=== PATIENT | male | born 1975 ===

== ENCOUNTER 2020-09-26 14:22 | Outpatient (REF) | payer OTHER, SELFPAY ==
[2020-09-26 15:10] LABS: Influenza A PCR NEGATIVE (Negative); Influenza B PCR NEGATIVE (Negative); Resp Syncy Virus RNA Qual PCR NEGATIVE (Negative); SARS COV2 PCR INHOUSE POSITIVE (Negative)
== END 2020-09-26 14:23 | disposition home or self-care (01) ==
LOC: HO.LNP 14:22
PROVIDERS: Visit Provider Internal Medicine
DX: Z20.822 Contact with and (suspected) exposure to COVID-19 (principal); R51.9 Headache, unspecified; R50.9 Fever, unspecified
CPT/HCPCS: 0241U

== ENCOUNTER → 2020-12-28 13:53 | Outpatient (BNVA) | payer SELFPAY | PROVIDERS: PCP Internal Medicine; Visit Provider Internal Medicine | DX: Z02.79 Encounter for issue of other medical certificate (principal) ==

== ENCOUNTER 2021-08-01 06:31 | Outpatient (REF) | payer OTHER, SELFPAY ==
[2021-08-01 07:18] LABS: Hematocrit 37.2 % (42.0-52.0); Hemoglobin 12.5 g/dl (14.0-18.0); Mean Corpuscular HGB Conc 33.6 g/dl (31.0-36.0); Mean Corpuscular Hemoglobin 29.1 pg (27.0-33.0); Mean Corpuscular Volume 86.7 fL (80.0-98.0); Mean Platelet Volume 10.1 fL (9.4-12.4); PLT CLUMP 1; Red Blood Count 4.29 X10*6/uL (4.60-5.80)
[2021-08-01 07:38] LABS: White Blood Count 4.1 X10*3/uL (4.8-10.8)
[2021-08-01 07:39] LABS: Platelet Count 235 X10*3/uL (160-400)
[2021-08-01 07:42] LABS: Alanine Aminotransferase 19 U/L (0-40); Albumin Level 4.5 g/dL (3.5-5.0); Alkaline Phosphatase 65 U/L (39-117); Anion Gap 13 (12-20); Aspartate Amino Transferase 17 U/L (5-37); Bilirubin Total 0.5 mg/dL (0.0-1.0); Blood Urea Nitrogen 19 mg/dL (9-16); Calcium 9.6 mg/dL (8.4-10.2); Carbon Dioxide 24 mmol/L (22-29); Chloride 107 mmol/L (96-108); Cholesterol 246 mg/dL; Estimated Glomerular Filt Rate > 60; Glucose Fasting 109 mg/dL (60-99); HDL Cholesterol 34 mg/dL; LDL Cholesterol Calculated 180 mg/dl; Potassium 4.4 mmol/L (3.3-5.1); Sodium 140 mmol/L (135-145); Total Protein 7.5 g/dL (6.5-8.0); Triglycerides 160 mg/dL
[2021-08-01 07:48] LABS: Eosinophils Absolute Manual 0.2 X10*3/uL (0.0-0.4); Eosinophils Percent Manual 6 % (0-4); Lymphocytes Absolute Manual 2.5 X10*3/uL (1.2-4.9); Lymphocytes Percent Manual 62 % (20-40); Monocytes Absolute Manual 0.2 X10*3/uL (0.1-1.2); Monocytes Percent Manual 4 % (2-11); Neutrophils Percent Manual 28 % (45-73)
[2021-08-01 07:49] LABS: Platelet Estimate NORMAL (NORMAL); Platelet Morphology Comment NORMAL; RBC Morphology NORMAL
[2021-08-01 08:03] LABS: Prostate Specific Antigen Scr 0.48 ng/mL (<0.05-4.0)
[2021-08-01 09:29] LABS: Band Neutrophils Percent 0 % (3-5); Neutrophils Absolute Manual 1.1 X10*3/uL (2.0-8.3)
== END 2021-08-01 06:32 | disposition home or self-care (01) ==
LOC: HO.LAB 06:31
PROVIDERS: PCP Internal Medicine; Visit Provider Internal Medicine
DX: Z00.00 Encounter for general adult medical examination without abnormal findings (principal); Z12.5 Encounter for screening for malignant neoplasm of prostate; R35.1 Nocturia
CPT/HCPCS: 36415; 80053; 80061; 84153; 85007; 85025; 85027

== ENCOUNTER 2021-11-01 16:15 | Outpatient (REF) | payer OTHER, SELFPAY ==
--- NOTE | ~2021-11-01 | XR_ITS ---
EXAMINATION: XR WRIST, RIGHT CLINICAL INFORMATION: Right wrist pain COMPARISON: None TECHNIQUE: Right wrist is imaged in 4 views. FINDINGS: There is no fracture or dislocation. The ulnar variance is neutral. There is no joint narrowing or erosive change or chondrocalcinosis. Normal bony mineralization. No periostitis. XR/XR wrist RT min 3V IMPRESSION: Unremarkable right wrist.
[2021-11-01 16:28] LABS: MANUAL DIFF FLAG NO
[2021-11-01 17:35] LABS: Basophils Percent Auto 0.9 % (0-2); Eosinophils Absolute Auto 0.2 X10*3/uL (0.0-0.4); Eosinophils Percent Auto 5.2 % (0-4); Hematocrit 38.9 % (42.0-52.0); Hemoglobin 13.1 g/dl (14.0-18.0); Imm Gran Abs Auto 0.01 X10*3/uL (0.00-0.03); Imm Gran Pct Auto 0.2 % (0.0-0.4); Lymphocytes Absolute Auto 2.3 X10*3/uL (1.2-4.9); Lymphocytes Percent Auto 54.7 % (20-40); Mean Corpuscular HGB Conc 33.7 g/dl (31.0-36.0); Mean Corpuscular Hemoglobin 29.4 pg (27.0-33.0); Mean Corpuscular Volume 87.4 fL (80.0-98.0); Monocytes Absolute Auto 0.3 X10*3/uL (0.1-1.2); Monocytes Percent Auto 5.9 % (2-11); Neutrophils Absolute Auto 1.4 x10*3/uL (2.0-8.3); Neutrophils Percent Auto 33.1 % (45-73); Platelet Count 272 X10*3/uL (160-400); Red Blood Count 4.45 X10*6/uL (4.60-5.80); Red Cell Distribution Width 11.7 % (11.0-16.0); White Blood Count 4.3 X10*3/uL (4.8-10.8)
[2021-11-01 17:52] LABS: C Reactive Protein 0.18 mg/dL (< or = 0.50); Iron 85 mcg/dL (45-160); Percent Iron Saturation 24 % (15-50); Total Iron Binding Capacity 351 mcg/dL (228-428); Unsaturated Iron Binding 266 ug/dL
== END 2021-11-01 16:16 | disposition home or self-care (01) ==
LOC: HO.LAB 16:15
PROVIDERS: PCP Internal Medicine; Visit Provider Internal Medicine
DX: M25.531 Pain in right wrist (principal); D64.9 Anemia, unspecified; E78.00 Pure hypercholesterolemia, unspecified
CPT/HCPCS: 36415; 73110; 83540; 85025; 86140

== ENCOUNTER 2021-11-28 09:23 | Outpatient (REF) | payer OTHER, SELFPAY ==
[2021-11-28 11:05] LABS: Cholesterol 239 mg/dL; HDL Cholesterol 33 mg/dL; LDL Cholesterol Calculated 175 mg/dl; Triglycerides 158 mg/dL
== END 2021-11-28 09:24 | disposition home or self-care (01) ==
LOC: HO.LAB 09:23
PROVIDERS: PCP Internal Medicine; Visit Provider Internal Medicine
DX: E78.00 Pure hypercholesterolemia, unspecified (principal)
CPT/HCPCS: 36415; 80061

== ENCOUNTER 2022-01-04 06:12 | Day surgery (SDC) | payer OTHER, SELFPAY ==
[2021-12-28 14:00] VITALS: BMI 26.9
--- NOTE | 2022-01-03 09:55 | HO.ANESPROP2 ---
Documented by User: Ilene Aj NP 01/03/22 09:56 HPI - Anesthesia Eval Consult details Narrative: 46yo M for Colonoscopy [facility] Past Medical History Medical History Elevated cholesterol History of COVID-19 HTN (hypertension) Surgical History Surgical History No pertinent past surgical history Social History Social History Patient Tobacco Use Status: Former Tobacco user Quit Date: years ago Use of substances other than those prescribed or required for medical reasons: No Are you DNR?: No Advance Directives: No Advance Directives Information Provided: Yes Meds Allergies Allergy/AdvReac Type Severity Reaction Status Date / Time No Known Allergies Allergy Verified 12/28/21 13:59 Home Medications Medication Instructions Recorded Confirmed Last Taken Type No Known Home Meds 12/28/21 12/28/21 Unknown History Exam Exam Date and Time: January 03, 2022 0955 Height,Weight and Vital Signs: Height 5 ft 10 in Weight 85.275 kg Pertinent Lab Results Pertinent Lab Results: Laboratory Tests 08/01/21 11/01/21 06:49 16:27 WBC 4.3 L Hgb 13.1 L Hct 38.9 L Plt Count 272 Sodium 140 Potassium 4.4 Chloride 107 Carbon Dioxide 24 BUN 19 H Creatinine 0.96 Assessment and Plan Assessment Anesthesia Assessment: Chart Reviewed Documented by User: Kathleen Boyce MD 01/04/22 07:25 [facility] Past Medical History Medical History Elevated cholesterol History of COVID-19 HTN (hypertension) Surgical History Surgical History No pertinent past surgical history History of Problems with Anesthesia: No Social History Social History Patient Tobacco Use Status: Former Tobacco user Quit Date: years ago Use of substances other than those prescribed or required for medical reasons: No Are you DNR?: No Advance Directives: No Advance Directives Information Provided: Yes Meds Allergies Allergy/AdvReac Type Severity Reaction Status Date / Time No Known Allergies Allergy Verified 12/28/21 13:59 Home Medications Medication Instructions Recorded Confirmed Last Taken Type No Known Home Meds 12/28/21 12/28/21 Unknown History Exam Airway Mallampati Class: III TM Dist: >3cm Neck ROM: Full Loose/Missing/Broken Teeth: No Heart: RRR Lungs: CTA Assessment and Plan Assessment Anesthesia Assessment: Anesthesia Plan Discussed Final Anesthetic Review History of Problems with Anesthesia: No NPO: Yes ASA Class: II Final Preanesthetic Review: Meds/Allgs Chart Reviewed, Consent Obtained/Reviewed and Anes Risks/Benef Reviewed Patient Risk: Low Procedure Risk: Low Anesthetic Plan Anesthetic Plan: MAC: Disposition: Standard PACU
[2022-01-04 06:23] VITALS: BMI 26.1
[2022-01-04 06:39] VITALS: BP 111/70; PULSE 58; RESP 18; TEMP 36.7; O2SAT 98
--- NOTE | 2022-01-04 07:18 | P.HPSUR_ITS ---
Pre-Procedural Eval Section A Date of Service: 01/04/22 Section B Chief Complaint: screening Details of Present Illness: see h an p no changes Relevant Family History (Specify if Yes): No Relevant Social History: None Present Medications: None Medical History: No relevant PMH History of Previous Operations: No relevant previous surgery Allergies: Allergies Allergy/AdvReac Type Severity Reaction Status Date / Time No Known Allergies Allergy Verified 12/28/21 13:59 Review of Systems Sugical H&P ROS: Negative: Constitution, Cardiovascular, Respiratory, Neurological, Psychiatric, Hem-Onc, Allergic/Immunologic, Gastrointestinal, Gen itourinary, Musculoskeletal, Integumentary, Endocrine and Eyes/Ears/Nose/Throat Exam Surgical H&P Exam: Normal: HEENT, Normal: Heart, Normal: Lungs, Normal: Extremities, Normal: Abdomen, Normal: Skin and Normal: Neurological Plan Diagnosis/Plan: Unchanged I have reviewed the history and physical and performed a pertinent physical examination on my patient. No changes have occurred unless specified.
[2022-01-04] MEDS: Lactated Ringers 1,000 ML 100 ML IVCONT (07:45)
[2022-01-04 07:50] VITALS: BP 86/42; PULSE 72; RESP 18; TEMP 37.2; O2SAT 98
--- NOTE | 2022-01-04 07:51 | PM.OP ---
Brief Operative Note Date of Service: 01/04/22 Pre-op diagnosis: screening Post-op diagnosis: same Procedure: colonoscopy Surgeon: Kun Mchugh Anesthesia: MAC Was an Senior Software Test Engineer used for this Procedure?: No Estimated blood loss (mL): 0 Pathology: other Condition: stable Disposition: PACU
[2022-01-04 08:05] VITALS: BP 108/70; PULSE 65; RESP 16; O2SAT 98
[2022-01-04 08:20] VITALS: BP 113/71; PULSE 54; RESP 16; TEMP 36.8; O2SAT 99
--- NOTE | 2022-01-04 19:02 | OP_ITS ---
SURGEON: Kun Mchugh MD INDICATIONS: Colon cancer screening. PREOPERATIVE DIAGNOSIS: POSTOPERATIVE DIAGNOSIS: PROCEDURE PERFORMED: ESTIMATED BLOOD LOSS: COMPLICATIONS: ANESTHESIA: ASSISTANTS: SPECIMENS: PROCEDURE: Colonoscopy to the terminal ileum with biopsy. MEDICATIONS: Monitored anesthesia care. DESCRIPTION OF PROCEDURE: A history and physical performed. The risks and benefits of the procedure were explained to the patient. Informed consent was obtained. The patient was placed in the left lateral decubitus position. A digital rectal exam was performed and was found to be normal. The Olympus pediatric video colonoscope was introduced into the rectum and advanced to the cecum without difficulty. The cecum was identified by transillumination, palpation, and identification of ileocecal valve. Examination was performed. The scope was removed. He tolerated the procedure well and was taken to recovery area in stable condition. FINDINGS: The terminal ileum was normal. Visualized colonic mucosa was normal. The quality of the prep was good. A single polyp measuring less than 5 mm was identified in the cecum across from the ileocecal valve. This was removed with biopsy forceps. No other polyps were identified. Retroflexed examination showed small internal hemorrhoids. IMPRESSION: Colon polyp. RECOMMENDATIONS: Follow up the biopsy results. MD RADHA Woods/KRYSTIAN / [id number]
== END 2022-01-04 08:55 | disposition home or self-care (01) ==
PROVIDERS: PCP Internal Medicine; Visit Provider Internal Medicine Gastroenterology
PROC: 0DJD8ZZ Inspection of Lower Intestinal Tract, Via Natural or Artificial Opening Endoscopic (ICD-10-PCS; CPT 45378; principal; 2022-01-04 07:30)
DX: Z12.11 Encounter for screening for malignant neoplasm of colon (principal); D12.0 Benign neoplasm of cecum; K64.8 Other hemorrhoids; E78.00 Pure hypercholesterolemia, unspecified; I10 Essential (primary) hypertension; Z86.16 Personal history of COVID-19; Z87.891 Personal history of nicotine dependence
CPT/HCPCS: 45380; 88305

== ENCOUNTER → 2022-12-27 11:03 | Outpatient (BNVA) | payer SELFPAY | PROVIDERS: PCP Internal Medicine; Visit Provider Physician Assistant | DX: Z02.79 Encounter for issue of other medical certificate (principal) ==

== ENCOUNTER 2023-02-22 19:18 | Emergency (ER) | payer OTHER, SELFPAY ==
[2023-02-22 19:20] VITALS: BP 138/85; PULSE 73; RESP 18; TEMP 36.4; O2SAT 98; BMI 26.9
--- NOTE | 2023-02-22 19:21 | ED.GENADULT ---
HPI - General Adult General Chief complaint: Eye Problems Stated complaint: FB in R eye Time Seen by Provider: 02/22/23 21:00 Source: patient Mode of arrival: ambulatory Limitations: no limitations History of Present Illness HPI narrative: 47-year-old male with no major medical problems presents with right eye pain. Patient had a metal fragment hit his right eye yesterday. He had minimal to no pain until today. This pain is moderate to severe. Worse with light and blinking. The pain does not radiate. Denies any vision changes. There are no relieving features. He has never had anything like this before. Does not wear contacts but does wear reading glasses. Patient's tetanus vaccination is not up-to-date. Related Data Previous Rx's Medication Instructions Recorded erythromycin 5 mg/gram (0.5 %) eye 1 appl ophthalmic-Right DAILY #3.5 02/22/23 ointment grams polymyxin B sulfate 10,000 1 drp ophthalmic-Right Q3H 7 days 02/22/23 unit-trimethoprim 1 mg/mL eye #10 mL drops (Polytrim) Allergies Allergy/AdvReac Type Severity Reaction Status Date / Time No Known Allergies Allergy Verified 12/28/21 13:59 Review of Systems Review of Systems: CONSTITUTIONAL: Denies weight loss, fever and chills. HEENT: Denies changes in vision and hearing. RESPIRATORY: Denies SOB and cough. CV: Denies palpitations no CP. GI: Denies abdominal pain, nausea, vomiting and diarrhea. : Denies dysuria and urinary frequency. MSK: Denies myalgia and joint pain. SKIN: Denies rash and pruritus. NEUROLOGICAL: Denies headache and syncope. PSYCHIATRIC: Denies recent changes in mood. Denies anxiety and depression. All other ROS are negative unless in HPI PMF Past Medical History Medical History Elevated cholesterol History of COVID-19 HTN (hypertension) Surgical History No pertinent past surgical history Social History Social History Patient Tobacco Use Status: Former Tobacco user Quit Date: years ago Advance Directives: No Advance Directives Information Provided: No Physical Exam ED Vital Signs: Vital Signs - 24 hr 02/22/23 19:20 Temperature 97.6 F Pulse Rate 73 Respiratory Rate 18 Blood Pressure 138/85 Pulse Oximetry 98 Oxygen Delivery Method Room Air BMI result Body Mass Index 26.9 GEN: Well developed, no acute distress, alert, oriented HEENT: Normocephalic, atraumatic, normal external ears, nose appears normal Eyes: At eye with conjunctival injection, fluorescein exam did not reveal any significant corneal abrasions. No foreign bodies visualized. No foreign bodies with eversion eyelids. Otherwise, pupils are equal round reactive to light, extraocular muscles were intact, there was tearing but no purulent discharge Neck: Supple, no lymphadenopathy Respiratory: Talks in complete sentences, no respiratory distress Extremities: No clubbing cyanosis or edema Neurologic: No focal neurologic deficits, cranial nerves 2-12 intact, gait normal Skin: No rash Course Course Course Narrative: RME performed by Malou Varela PA-C. Patient is a 47 year old assigned male at presenting to the emergency department with a possible metal foreign body in his right eye. Patient placed back in the waiting room pending room availability. Reevaluation(s) Reevaluation #1: Exam did not reveal any foreign bodies. Although I did not see any significant corneal abrasions, will go ahead and treat the patient with topical antibiotics refer to ophthalmology. Patient could return for any worsening concerning symptoms. Time: 22:31 Medications Administered Discontinued Medications Generic Name Dose Route Start Last Admin Trade Name Freq PRN Reason Stop Dose Admin Diphtheria/Tetanus/Acell Pertussis 0.5 ml 02/22/23 21:12 02/22/23 21:40 Diphth,Pertus(Acell),Tet Adult 0.5 Ml Syringe IM 02/22/23 21:13 0.5 ml .ONCE ONE Administration Fluorescein Sodium 1 strip 02/22/23 21:13 02/22/23 21:30 Fluorescein Sodium Strip EYE-BOTH 02/22/23 21:14 1 strip ONCE ONE Administration Medical Decision Making Medical Decision Making MDM Narrative: 47-year-old male presents with acute right eye pain following possible metal fragment to the right eye. He does have some photophobia. There is tearing but no other purulent discharge. Examination did not reveal any obvious corneal abrasions or foreign bodies including under either eyelid. Patient's tetanus vaccination has been updated. Will start the patient on topical antibiotics and referred to Ophthalmology to be seen at his earliest convenience. Differential Diagnosis Differential Diagnoses: The differential diagnosis associated with the presentation includes (Corneal abrasion, conjunctivitis, eye irritation) Prescription Management I considered prescription management with: Pain Medication and Antibiotic Discharge Plan Discharge Clinical Impression: Corneal abrasion Patient Disposition: Home, Self-Care Instructions: Diphtheria/Acellular Pertussis/Tetanus Booster Vaccine (By injection), Corneal Abrasion (ED) Prescriptions: New polymyxin B sulf-trimethoprim [Polytrim] 10,000 unit- 1 mg/mL drops 1 drp ophthalmic-Right Q3H 7 Days Qty: 10 0RF Rx Instructions: while awake; do not exceed 6 doses in 24 hours erythromycin 5 mg/gram (0.5 %) ointment 1 appl ophthalmic-Right DAILY Qty: 3.5 0RF Referrals: Rios Houtson [Physician] - 3 days Interventions: ED Discharge Assessment Last Done: 02/22/23 21:44 Discharge Date/Time: 02/22/23 21:45
--- NOTE | 2023-02-22 21:45 | PC.NURSE ---
pt medicated per OCT- tetanus updated, VIS given
== END 2023-02-22 21:45 | disposition home or self-care (01) ==
PROVIDERS: Emergency Provider Emergency Medicine; PCP Internal Medicine
DX: S05.01XA Injury of conjunctiva and corneal abrasion without foreign body, right eye, initial encounter (principal); X58.XXXA Exposure to other specified factors, initial encounter; H57.11 Ocular pain, right eye; Y93.9 Activity, unspecified; Y92.9 Unspecified place or not applicable; Y99.9 Unspecified external cause status
CPT/HCPCS: 90471; 90715; 99282; 99284

== ENCOUNTER → 2024-11-12 11:22 | Outpatient (BNVA) | payer SELFPAY | PROVIDERS: PCP Internal Medicine; Visit Provider Physician Assistant | DX: Z02.79 Encounter for issue of other medical certificate (principal) ==